=== PATIENT | female | born 1975 | race Caucasian/White ===

== ENCOUNTER 2019-10-20 21:02 | Emergency (ER) | payer BC ==
[2019-10-20] MEDS ORDERED: Ondansetron 4 MG/2 ML SDV IVPUSH ONE (21:23)
[2019-10-20] MEDS ORDERED: HYDROmorphone 0.5 MG/0.5 ML Syringe IVPUSH ONE (21:23)
[2019-10-20] MEDS ORDERED: fentaNYL 100 MCG/2 ML SDV IVPUSH ONE ×4 (22:06→22:41)
[2019-10-20] MEDS ORDERED: Midazolam 1 MG/ML 5 ML SDV IVPUSH ONE (22:16)
--- NOTE | 2019-10-20 22:28 | EDM.PDOC ---
ED HPI GENERAL MEDICAL PROBLEM - General Chief Complaint: Lower Extremity Injury/Pain Stated Complaint: SLIPPED IN [place] AND INJURED LEFT ANKLE Time Seen by Provider: 10/20/19 21:08 Source of Information: Reports: Patient History Limitations: Reports: No Limitations - History of Present Illness INITIAL COMMENTS - FREE TEXT/NARRATIVE: Patient is a 44-year-old female presenting to the emergency department with complaints of pain and swelling to her left ankle. States she was walking through a [place] to guide her horse across when she stepped in a hole causing her to fall. States she felt and heard cracking when she fell. She is able to move her toes; however, it is painful. She denies previous injury to the extremity. Left Ankle Pain Score (Numeric/FACES): 10 - Related Data Allergies Allergy/AdvReac Type Severity Reaction Status Date / Time amoxicillin [From Augmentin] Allergy Severe Hives Verified 10/20/19 21:21 clavulanic acid Allergy Severe Hives Verified 10/20/19 21:21 [From Augmentin] Sulfa (Sulfonamide Allergy Severe Hives Verified 10/20/19 21:21 Antibiotics) Home Meds: Home Meds Desvenlafaxine Succinate [Pristiq] 25 mg PO DAILY 10/20/19 [History] Fexofenadine HCl [Penelope Allergy] 60 mg PO DAILY 10/20/19 [History] atorvaSTATin [Lipitor] 20 mg PO BEDTIME 10/20/19 [History] Social & Family History - Tobacco Use Smoking Status *Q: Never Smoker Second Hand Smoke Exposure: No - Caffeine Use Caffeine Use: Reports: None - Recreational Drug Use Recreational Drug Use: No Review of Systems - Review of Systems Review Of Systems: Comprehensive ROS is negative, except as noted in HPI. ED EXAM, GENERAL - Physical Exam Exam: See Below General Appearance: Alert, Mild Distress Respiratory/Chest: No Respiratory Distress, Lungs Clear, Normal Breath Sounds, No Accessory Muscle Use, Chest Non-Tender Cardiovascular: Normal Peripheral Pulses, Regular Rate, Rhythm, No Edema, No Gallop, No JVD, No Murmur, No Rub Extremities: Other (Swelling, ecchymosis, and obvious anterior deformity of the left ankle. CMS is intact distal to the injury.) Neurological: Alert, Oriented, CN II-XII Intact, Normal Cognition, Normal Gait, Normal Reflexes, No Motor/Sensory Deficits Psychiatric: Normal Affect, Normal Mood ED TRAUMA EXTREMITY PROCEDURES - Joint Reduction Left Ankle Sedation: Conscious Sedation Pre-Procedure NV Status: Normal Post-Procedure NV Status: Normal Technique: Traction/Counter Traction Number of Attempts: 1 (With assist of Dr. Cohn) Post-Reduction Imaging: Acceptably Reduced, Fracture Seen Joint Reduction Complications: No Progress/Comments: Reduction of trimalleolar fracture with anterior dislocation completed with assist of Dr. Cohn. Pt received a total of Fentanyl 150 mcg and Versed 5mg given in divided doses until optimal sedation reach. Anterior traction/reduction was applied by Dr. Cohn while splinting material was applied by this COMPUTER SCIENCE TEACHER. Post reduction xrays were obtained and showed optimal alignment of the joint. CMS+ distal to the injury. Pt tolerated well. VS stable throughout procedure. Course - Vital Signs Last Recorded V/S: Last Vital Signs Temp 97.9 F 10/20/19 21:14 Pulse 88 10/20/19 21:14 Resp 20 10/20/19 21:14 BP 147/88 H 10/20/19 21:14 Pulse Ox 100 10/20/19 21:14 - Orders/Labs/Meds Meds: Medications Discontinued Medications Generic Name Dose Route Start Last Admin Trade Name Freq PRN Reason Stop Dose Admin Fentanyl 25 mcg 10/20/19 22:06 Sublimaze IVPUSH 10/20/19 22:07 ONETIME ONE Fentanyl 50 mcg 10/20/19 22:08 10/20/19 22:21 Sublimaze IVPUSH 10/20/19 22:09 50 mcg ONETIME ONE Administration Fentanyl 50 mcg 10/20/19 22:20 10/20/19 22:49 Sublimaze IVPUSH 10/20/19 22:21 50 mcg ONETIME ONE Administration Fentanyl 50 mcg 10/20/19 22:41 10/20/19 23:10 Sublimaze IVPUSH 10/20/19 22:42 50 mcg ONETIME ONE Administration Hydromorphone HCl 0.5 mg 10/20/19 21:23 10/20/19 21:37 Dilaudid IVPUSH 10/20/19 21:24 0.5 mg ONETIME ONE Administration Midazolam HCl 5 mg 10/20/19 22:16 10/21/19 06:36 Versed 1 Mg/Ml IVPUSH 10/20/19 22:17 Not Given ONETIME ONE Midazolam HCl Confirm 10/20/19 22:44 10/20/19 22:52 Versed 5 Mg/Ml Administered 10/20/19 22:45 Not Given Dose 50 mg .ROUTE .STK-MED ONE Midazolam HCl Confirm 10/20/19 22:48 10/21/19 06:35 Versed 1 Mg/Ml Administered 10/20/19 22:49 Not Given Dose 6 mg .ROUTE .STK-MED ONE Midazolam HCl 1 mg 10/20/19 22:56 10/21/19 01:00 Versed 1 Mg/Ml IVPUSH 10/20/19 22:57 1 mg ONETIME ONE Administration Midazolam HCl 2 mg 10/20/19 22:56 10/21/19 06:31 Versed 1 Mg/Ml IVPUSH 10/20/19 22:57 2 mg ONETIME ONE Administration Midazolam HCl 2 mg 10/20/19 22:58 10/20/19 22:58 Versed 1 Mg/Ml IVPUSH 10/20/19 22:59 2 mg ONETIME ONE Administration Ondansetron HCl 4 mg 10/20/19 21:23 10/20/19 21:37 Zofran IVPUSH 10/20/19 21:24 4 mg ONETIME ONE Administration - Re-Assessments/Exams Free Text/Narrative Re-Assessment/Exam: 10/20/19 22:27 X-ray of the left ankle shows trimalleolar fracture with anterior dislocation. Called and spoke with Dr. Purcell, orthopedics. He he recommended reduction and posterior splinting. States surgical repair generally occurs 10 days after injury. Case discussed with Dr. Suki MD. He will assist with sedation and reduction of the ankle. Procedure discussed with patient and informed consent completed. She is still quite uncomfortable. I will order fentanyl 50 mcg to be given now. I have placed an order for an additional fentanyl 50 mcg and Versed 5 mg to be pulled for procedural sedation per request of Dr. Cohn. 10/20/19 23:18 Trimalleolar fracture with anterior dislocation of the left ankle was successfully reduced with the assistance of Dr. Cohn. See procedure notes. Post reduction x-rays were reviewed by myself and Dr. Cohn. The joint was found to be in optimal allignment. I will right for percocets with PRN zofran for pain. She will be provided with a disc with her xray images so she may schedule with an orthopedist when she gets home. Dr. Cohn will assume care of patient until she is awake and ready to discharge. Departure - Departure Time of Disposition: 00:36 Disposition: Home, Self-Care 01 Condition: Good Clinical Impression: Trimalleolar fracture of ankle, closed Qualifiers: Encounter type: initial encounter Laterality: left Qualified Code(s): S82.852A - Displaced trimalleolar fracture of left lower leg, initial encounter for closed fracture - Discharge Information *PRESCRIPTION DRUG MONITORING PROGRAM REVIEWED*: Yes *COPY OF PRESCRIPTION DRUG MONITORING REPORT IN PATIENT TIFFANIE: No Instructions: Ankle Fracture Referrals: Donnie Finley MD [Ordering Only Provider] - Forms: ED Department Discharge Additional Instructions: You were seen in the emergency department today for pain and swelling to your left ankle after falling in a [place]. X-rays were performed and show that she had a trimalleolar fracture of your left ankle. After mild sedation, the ankle was able to be reduced back into anatomical position. A splint has been applied. This should remain intact at all times and be kept clean and dry. Recommend that you ice and elevate the extremity as much as possible. You may use [id number] Tylenol as needed for pain. For pain not relieved by tylenol, a prescription for Percocet has been provided. You have been provided prescription for Zofran for nausea as the pain medications may cause nausea. Take the Percocets only as prescribed. Do not drive or work for 12 hours after taking them as they can be sedating. You have been provided crutches for use at all times. You should be non- weightbearing to your left extremity. You have been provided a disc of your x-rays. A referal has been sent to Dr. Donnie Finley and the images have also been sent to [facility] in [place]; however, you may follow-up with an orthopedist of your choice. Recommend that you contact an rotating equipment specialist in [place] tomorrow and make them aware that you have a trimalleolar fracture which is in need of repair and schedule an appointment at their next available visit. If you should experience an new or worsening symptoms of concern, please do not hesitate to return to the emergency department. Sepsis Event Note (ED) - Evaluation Sepsis Screening Result: No Definite Risk
[2019-10-20] MEDS ORDERED: Midazolam 5 MG/ML 10 ML MDV ONE (22:44)
[2019-10-20] MEDS ORDERED: Midazolam 1 MG/ML 2 ML SDV ONE (22:48)
[2019-10-20] MEDS ORDERED: Midazolam 1 MG/ML 2 ML SDV IVPUSH ONE ×3 (22:56→22:58)
--- NOTE | 2019-10-21 08:35 | CR ---
Left ankle: 2 views of the left ankle were obtained. Comparison: Prior left ankle study performed earlier on the same day (9:29 PM). Trimalleolar fracture is again noted. Fracture shows better alignment on current study than previous. Fiberglas cast is in place. Soft tissue swelling remains. Impression: 1. Better alignment of previous trimalleolar fracture. 2. Fiberglas cast is now in place. Diagnostic code #3 This report was dictated in MDT
--- NOTE | 2019-10-21 08:37 | CR ---
Left ankle: 4 views left ankle were obtained. Posterior malleolus fracture is noted. Medial malleolus fracture is noted. Distal fibular fracture is also noted. Fractures are mildly displaced. There is shifting of the talus in a lateral direction as well as anterior shifting of the tibia in relation to the talus. Soft tissue swelling is noted. Impression: 1. Displaced trimalleolar fracture with unstable ankle mortise. 2. Soft tissue swelling. Diagnostic code #3 This report was dictated in MDT
== END 2019-10-21 00:36 | disposition home or self-care (01) ==
LOC: JD.ED 21:02
DX: S82.852A Displaced trimalleolar fracture of left lower leg, initial encounter for closed fracture (principal); Z88.1 Allergy status to other antibiotic agents; Z88.2 Allergy status to sulfonamides; Z79.899 Other long term (current) drug therapy; W17.2XXA Fall into hole, initial encounter
CPT/HCPCS: 27818; 73600; 73610; 96374; 96375; 99152; 99153; 99283; J1170; J2250; J2405; J3010